=== PATIENT | male | born 1995 | race Caucasian/White ===

== ENCOUNTER 2020-08-27 13:57 | Day surgery (SDC) | payer BC, OTHER ==
[2020-08-25 17:18] VITALS: BMI 25.7
[2020-08-27] MEDS ORDERED: PROMETHAZINE HCL 25 MG/1 ML VIAL IVPUSH PRN (14:41)
[2020-08-27] MEDS ORDERED: oxyCODONE HCL 5 MG TABLET PO PRN ×2 (14:41)
[2020-08-27] MEDS ORDERED: ONDANSETRON 4 MG/2 ML VIAL IVPUSH PRN (14:41)
[2020-08-27] MEDS ORDERED: BUPIVACAINE HCL/PF 0.25% (2.5MG/ML) 10 ML VIAL ONE (14:57)
[2020-08-27] MEDS ORDERED: PROPOFOL 20 ML ONE ×2 (15:00→16:48)
[2020-08-27] MEDS ORDERED: MIDAZOLAM HCL 2 MG/2 ML SINGLE DOSE VIAL ONE (15:00)
[2020-08-27] MEDS ORDERED: DEXAMETHASONE SOD PHOSPHATE 4 MG/1 ML VIAL ONE (15:01)
[2020-08-27] MEDS ORDERED: KETOROLAC TROMETHAMINE 30 MG/1 ML VIAL ONE (15:01)
[2020-08-27] MEDS ORDERED: LIDOCAINE HCL/PF 2% SDV 5ML VIAL ONE (15:01)
[2020-08-27] MEDS ORDERED: DESFLURANE GAS 240 ML BOTTLE IH ONE (15:03)
[2020-08-27] MEDS ORDERED: BUPIVACAINE HCL/PF 0.25% (2.5MG/ML) 10 ML VIAL IJ ONE (16:49)
[2020-08-27 18:07] VITALS: TEMP 98
[2020-08-27 18:22] VITALS: BP 134/80; PULSE 70
== END 2020-08-27 18:22 | disposition home or self-care (01) ==
LOC: FASU 13:57
PROVIDERS: ATTEND Orthopaedic Surgery Hand Surgery
PROC: 0PSM04Z Reposition Right Carpal with Internal Fixation Device, Open Approach (ICD-10-PCS; principal; 2020-08-27 16:32)
DX: S62.021A Displaced fracture of middle third of navicular [scaphoid] bone of right wrist, initial encounter for closed fracture (principal); X58.XXXA Exposure to other specified factors, initial encounter; Y93.9 Activity, unspecified; Y92.9 Unspecified place or not applicable
CPT/HCPCS: 73130-TC-RT-FY; 94760